=== PATIENT | female | born 1940 | race Caucasian/White ===

== ENCOUNTER 2024-09-08 16:24 | Inpatient (IN) | payer MEDICARE, OTHER ==
[~2024-09-08] VITALS: Ht 152.4 cm; Wt 49.9 kg
[2024-09-08 17:48] VITALS: BP 144/56; TEMP 97.8; O2SAT 96
[2024-09-08] MEDS: HYDROCODONE/APAP 5-325MG TABLET PO PRN (18:33)
[2024-09-08] MEDS ORDERED: APIX2.5T PO (18:43)
[2024-09-08] MEDS ORDERED: FAMO-132 PO (18:43)
[2024-09-08] MEDS ORDERED: CHOL-35 PO (18:43)
[2024-09-08] MEDS ORDERED: POLY17PO4 PO (18:47)
[2024-09-08] MEDS ORDERED: FOLI1TAB27 PO (18:47)
[2024-09-08] MEDS ORDERED: SENN-261 PO (18:47)
[2024-09-08] MEDS ORDERED: LABE100T5 PO (18:47)
[2024-09-08] MEDS ORDERED: TRAM50TA2 PO (18:47)
[2024-09-08] MEDS: SENNOSIDES 1 TABLET PO SCH (21:00)
[2024-09-08] MEDS ORDERED: LABETALOL HCL 200 MG TABLET PO SCH (21:00)
[2024-09-08 21:52] VITALS: BP 129/51; TEMP 97.6; O2SAT 95
[2024-09-08] MEDS: LABETALOL HCL 100 MG TABLET PO SCH (22:04)
[2024-09-08] MEDS: APIXABAN 2.5 MG TABLET PO SCH (22:08)
[2024-09-08] MEDS: FAMOTIDINE 20 MG TABLET PO SCH (22:16)
[2024-09-09 06:00] VITALS: BP 166/82; TEMP 97.9; O2SAT 94
[2024-09-09] MEDS: TRAMADOL HCL 50 MG TABLET PO PRN (08:57)
[2024-09-09] MEDS: CHOLECALCIFEROL 1,000 UNIT TABLET PO SCH (09:02)
[2024-09-09] MEDS: FOLIC ACID 1 MG TABLET PO SCH (09:02)
[2024-09-09] MEDS: HYDROCODONE/APAP 10-325 MG TABLET PO PRN (13:14)
[2024-09-09 18:13] VITALS: BP 134/63; TEMP 97.7; O2SAT 98
[2024-09-09 20:00] VITALS: BP 131/65; TEMP 98.4; O2SAT 95
[2024-09-10 06:00] VITALS: BP 98/69; TEMP 98; O2SAT 98
[2024-09-10] MEDS: ACETAMINOPHEN 325 MG TABLET PO PRN (07:06)
[2024-09-10 16:15] VITALS: BP 120/56; TEMP 98.2; O2SAT 95
[2024-09-10] MEDS: HYDROCODONE/APAP 5-325MG TABLET PO SCH (21:14)
[2024-09-10 23:17] VITALS: BP 121/61; TEMP 97.4; O2SAT 95
[2024-09-11 07:15] VITALS: BP 117/54; TEMP 97.7; O2SAT 95
[2024-09-11 16:09] VITALS: BP 141/78; TEMP 98.4; O2SAT 95
[2024-09-11] MEDS: ENSURE ENLIVE (VAN) 240 ML LIQUID PO SCH (17:56)
[2024-09-11 21:07] VITALS: BP 147/62; TEMP 97.9; O2SAT 95
[2024-09-12 06:57] VITALS: BP 143/66; TEMP 98.4; O2SAT 96
[2024-09-12] MEDS ORDERED: REMEDY ESSENTIAL ZINC PASTE 113 GM TOP PRN (11:30)
[2024-09-12 15:43] VITALS: BP 131/59; TEMP 98.4; O2SAT 96
[2024-09-12 21:09] VITALS: BP 136/57; TEMP 97.9; O2SAT 95
[2024-09-13 06:00] VITALS: BP 123/57; TEMP 98.1; O2SAT 92
[2024-09-13 15:32] VITALS: BP 126/56; TEMP 98.2; O2SAT 95
[2024-09-13 19:34] VITALS: BP 148/55; TEMP 98.3; O2SAT 95
[2024-09-14 06:10] VITALS: BP 145/66; TEMP 97.8; O2SAT 95
[2024-09-14] MEDS: ONDANSETRON HCL 4 MG TABLET PO PRN (10:54)
[2024-09-14 16:00] VITALS: BP 123/52; TEMP 98; O2SAT 99
[2024-09-14 20:00] VITALS: BP 120/53; TEMP 98.1; O2SAT 99
[2024-09-14] MEDS: HYDROCODONE/APAP 5-325MG TABLET PO SCH (22:11)
[2024-09-15 06:00] VITALS: BP 125/62; TEMP 98; O2SAT 7; O2SAT 97
[2024-09-15] MEDS ORDERED: BISACODYL 5 MG TABLET.DR PO PRN (12:00)
[2024-09-15 16:19] VITALS: BP 125/46; TEMP 98.2; O2SAT 95
[2024-09-15 22:37] VITALS: BP 142/70; TEMP 98; O2SAT 97
[2024-09-16 06:00] VITALS: BP 113/57; TEMP 97.6; O2SAT 93
[2024-09-16 16:11] VITALS: BP 131/49; TEMP 98.3; O2SAT 94
[2024-09-16 19:30] VITALS: BP 151/59; TEMP 97.9; O2SAT 93
[2024-09-17 07:00] VITALS: BP 128/61; TEMP 98.8; O2SAT 98
[2024-09-17 07:01] VITALS: BP 156/61; TEMP 97.7; O2SAT 95
[2024-09-17 15:52] VITALS: BP 114/49; TEMP 98.6; O2SAT 94
[2024-09-17 20:35] VITALS: BP 139/43; TEMP 98; O2SAT 93
[2024-09-17] MEDS ORDERED: ACETAMINOPHEN 500 MG TABLET PO PRN (21:30)
[2024-09-18 06:55] VITALS: BP 158/56; TEMP 97.9; O2SAT 93
[2024-09-18 16:24] VITALS: BP 107/48; TEMP 97.6; O2SAT 95
[2024-09-18 20:29] VITALS: BP 140/52; TEMP 97.9; O2SAT 94
[2024-09-19] MEDS: LOPERAMIDE HCL 2 MG CAPSULE PO PRN (12:09)
[2024-09-19] MEDS ORDERED: DIPHENOXYLATE HCL/ATROP SULF TABLET PO PRN (12:30)
[2024-09-19 15:07] VITALS: BP 113/45; TEMP 97.8; O2SAT 96
[2024-09-19 20:06] VITALS: BP 135/55; TEMP 97.1; O2SAT 95
[2024-09-20 06:06] VITALS: BP 137/60; TEMP 97.8; O2SAT 93
[2024-09-20 14:34] LABS: BASOPHILS # (AUTO) 0.1 K/UL (0.0-0.2); EOSINOPHILS # (AUTO) 0.1 K/uL (0.0-0.7); EOSINOPHILS % (AUTO) 1.9 % (0.0-7.0); HEMATOCRIT 26.4 % (31.2-41.9); HEMOGLOBIN 8.8 g/dL (10.9-14.3); LYMPHOCYTES % (AUTO) 16.1 % (20.5-51.5); MEAN CORPUSCULAR HEMOGLOBIN 30.9 uug (24.7-32.8); MEAN CORPUSCULAR HGB CONC 33 g/dL (32.3-35.6); MEAN CORPUSCULAR VOLUME 92.8 fL (75.5-95.3); MONOCYTES # (AUTO) 0.8 K/uL (0.1-1.30); MONOCYTES % (AUTO) 12.3 % (0.0-11.0); NEUTROPHILS # (AUTO) 4.4 K/uL (1.8-8.9); NEUTROPHILS % (AUTO) 68.7 % (38.5-71.5); PLATELET COUNT (AUTO) 480 K/uL (179-408); RED BLOOD CELL COUNT(AUTO) 2.85 MIL/uL (3.63-4.92); RED CELL DISTRIBUTION WIDTH 16.4 % (12.3-17.7); WHITE BLOOD COUNT (AUTO) 6.5 K/uL (3.8-11.8)
[2024-09-20 14:41] LABS: DIFFERENTIAL COMMENT 1
[2024-09-20 14:54] LABS: ALANINE AMINOTRANSFERASE 29 U/L (14-59); ALBUMIN 2.4 g/dL (3.4-5.0); ALKALINE PHOSPHATASE 142 U/L (50-136); ASPARTATE AMINOTRANSFERASE 15 U/L (15-37); BILIRUBIN,TOTAL 0.3 mg/dL (0.2-1.0); CALCIUM 8.7 mg/dL (8.5-10.1); CARBON DIOXIDE 31 mmol/L (21-32); CHLORIDE 103 mmol/L (98-107); CREATININE 0.6 mg/dL (0.6-1.3); GLUCOSE 104 mg/dL (74-106); POTASSIUM 4.6 mmol/L (3.5-5.1); SODIUM SERUM 137 mmol/L (136-145); TOTAL PROTEIN, SERUM 5.6 g/dL (6.4-8.2); UREA NITROGEN, BLOOD 13 mg/dL (7-18)
[2024-09-20 15:24] VITALS: BP 113/46; TEMP 98.4; O2SAT 96
[2024-09-20 20:40] VITALS: BP 135/48; TEMP 97.5; O2SAT 94
[2024-09-21 00:04] VITALS: BP 120/67; TEMP 97.9; O2SAT 94
[2024-09-21 06:00] VITALS: BP 108/47; TEMP 97.9
[2024-09-21] MEDS: HYDROCODONE/APAP 5-325MG TABLET PO SCH (14:15)
[2024-09-21 15:49] VITALS: BP 124/61; TEMP 99.4; O2SAT 95
[2024-09-21] MEDS: ENSURE WITH FIBER 237 ML LIQUID (CHOCOLATE) PO SCH (17:51)
[2024-09-21] MEDS: DULOXETINE 20 MG CAPSULE.DR PO SCH (21:00)
[2024-09-21 21:19] VITALS: BP 163/69; TEMP 98.4; O2SAT 97
[2024-09-22 06:25] VITALS: BP 154/59; TEMP 98; O2SAT 97
[2024-09-22 15:14] VITALS: BP 139/58; TEMP 98.2; O2SAT 100
[2024-09-22 20:15] VITALS: TEMP 97.6
[2024-09-22] MEDS ORDERED: HYDROCODONE/APAP 5-325MG TABLET PO PRN (21:00)
[2024-09-23 05:28] VITALS: TEMP 98.2
[2024-09-23 10:18] VITALS: BP 151/55
== END 2024-09-23 15:30 | disposition home health service (06) | DRG 561 ==
PROVIDERS: ADMIT Physical Medicine & Rehabilitation Pain Medicine; ATTEND Physical Medicine & Rehabilitation Pain Medicine
DX: Z47.1 Aftercare following joint replacement surgery (principal); I10 Essential (primary) hypertension; Z87.440 Personal history of urinary (tract) infections; M16.11 Unilateral primary osteoarthritis, right hip; Z87.442 Personal history of urinary calculi; Z96.641 Presence of right artificial hip joint; Z88.0 Allergy status to penicillin; Z88.6 Allergy status to analgesic agent; F41.9 Anxiety disorder, unspecified
CPT/HCPCS: 36415; 73502; 85025; 97535-GO-CO; A4663; A6209; A9150; Q0162